=== PATIENT | female | born 2005 | race Caucasian/White ===

== ENCOUNTER 2024-12-31 01:49 | Inpatient (IN) ==
[2024-12-31 02:35] LABS: Appearance Urine Clear (Clear); Glucose Urine UA Negative (Negative)
[2024-12-31 02:37] LABS: Hematocrit (blood only) 39.2 % (37.0-47.0); Hemoglobin 13.0 g/dl (12.0-16.0); Immature Granulocytes # (auto) 0.06 K/uL (0.01-0.20); Immature Granulocytes % (auto) 0.4 %; Mean Corpuscular Hemoglobin 28.8 pg (25.0-34.0); Mean Corpuscular Volume 86.9 fL (80.0-100.0); Platelet Count 370 K/uL (130-400); RDW Standard Deviation 42.1 fL (36.4-46.3); Red Blood Count 4.51 M/uL (4.20-5.40); White Blood Count 15.17 K/ul (4.8-10.8)
[2024-12-31 02:55] LABS: Alanine Aminotransferase 11.0 U/L (7-52); Albumin Globulin Ratio 1.6 (0.9-2); Albumin Level 4.9 gm/dl (3.4-5.0); Alkaline Phosphatase 74.0 U/L (34-104); Anion Gap 12.0 (3-11); Bilirubin,Total 0.4 mg/dl (0.2-1.0); Blood Urea Nitrogen 8.0 mg/dl (6-23); Calcium 9.3 mg/dl (8.6-10.3); Carbon Dioxide 21.0 mmol/L (21-32); Chloride 107.0 mmol/L (98-107); Creatinine Clr Calc Pharmacy 116.4 ml/min; Globulin 3.1 gm/dl (2.5-4.0); Glucose 98.0 mg/dl (70-99(Fasting)); Potassium 3.8 mmol/L (3.5-5.1); Sodium 140.0 mmol/L (136-145); Total Protein 8.0 gm/dl (6.0-8.3)
[2024-12-31 03:03] LABS: Amphetamines+Metham, Urine Neg (Neg); MDMA (Ecstacy), Urine Neg (Neg); Marijuana, Urine Neg (Neg)
[2024-12-31 03:09] LABS: Thyroid Stimulating Hormone 1.764 uIu/ml (0.300-4.500)
--- NOTE | 2024-12-31 03:09 | Emergency Department Note ---
Impression & Plan Anxiety, Alcohol intoxication, Depression, Suicidal ideation ED Provider Note ED Provider Note NAME: CAITLIN DUBOIS AGE:19 SEX: Female : 2005 ARRIVES VIA: [] INFORMANT: Patient ED PROVIDER(s): Gali Styles DO CHIEF COMPLAINT: Mental health evaluation HPI: This is a 19-year-old female presents to the emergency department for mental health evaluation. Patient admits to a history of anxiety and depression and admits to recent suicidal ideation. Patient states that "she would not go through with it because of the risk of failure". Patient states she has thought about several methods in the past. No prior attempt. Patient does admit to alcohol this evening. She states she does use THC Gummies although has cut down on those since starting Lexapro approximately 6 weeks ago. She states her family doctor recently suggested increasing her Lexapro however she was reluctant to do so. She states she does typically drink on the weekends. She denies other recreational drug use. She denies any paranoia or hallucinations. She denies any homicidal ideation. Patient admits to stress with her roommates. PAST MEDICAL HISTORY:See Below PAST SURGICAL HISTORY:See Below FAMILY HISTORY:See Below SOCIAL HISTORY:See Below HOME MEDICATIONS:See Below ALLERGIES:See Below VITALS:See Below PHYSICAL EXAMINATION: GENERAL: alert, well appearing, well nourished, no distress, non-toxic EYE EXAM: normal conjunctiva, PERRL and EOM's grossly intact OROPHARYNX: no exudate, no erythema, lips, buccal mucosa, and tongue normal and mucous membranes are moist NECK: supple, no nuchal rigidity, no adenopathy, non-tender LUNGS: Clear to auscultation. Normal chest wall mechanics, no w/r/r HEART: no murmurs, S1 normal and S2 normal ABDOMEN: abdomen soft, non-tender, normo-active bowel sounds, no masses, no rebound or guarding. BACK: Back is symmetrical on inspection and there is no deformity, no midline tenderness, no CVA tenderness. SKIN: no rashes, petechiae, orbruising UPPER EXTREMITIES: upper extremities are grossly normal. FROM, nml pulses b/l. LOWER EXTREMITIES: No pitting edema. FROM, nml pulses b/l. NEURO EXAM: Normal sensorium, cranial nerves II-XII grossly intact, normal speech, no facial droop,nogross weakness of arms, no gross weakness of legs. Gross sensation intact. No ataxia. Vital Signs: reviewed and remarkable Differential Diagnosis: mood disorder, suicidal ideation, anxiety, depression, substance abuse, toxidrome, infection, hypoglycemia, electrolyte abnormalities, ICH as well as others were considered. MEDICAL DECISION MAKING: This is a 19-year-old female who presents today increased anxiety, depression, and suicidal ideation. She was afebrile and hemodynamically stable. She did admit to drinking alcohol prior to coming in. Labs and urine collected and sent per protocol. Patient monitored here while she sobered in a usual and expected fashion. She was then seen and evaluated by case management in the morning, achieving sobriety. Patient in agreement with plan for further inpatient evaluation. Patient was referred to 3 S. Patient signed out pending 3 S. evaluation and hopeful acceptance for further inpatient evaluation. Consultation(s): 0822: Patient seen and evaluated by carter Doran mgr. ER Treatment Provided: See below 0855: Patient signed out Dr. Cortez pending referral to 3S and final disposition. Diagnostics Interpreted By Me: -Laboratory studies: As stated above and show below. Triage Nursing Note Reviewed Prior/Outside Records Reviewed Past Med/Surg History Problem List (Updated 12/31/24 @ 15:22 by Manuel Chavarria MD) Cannabis abuse Alcohol withdrawal Alcohol abuse Social anxiety disorder Suicidal ideation (Acute) Depression (Acute) Alcohol intoxication (Acute) Anxiety (Acute) No significant past medical history Medical History History of cold-induced urticaria No significant past medical history Surgical History No history of previous surgery Social History Smoking Status: Never smoker Hx Alcohol Use: Yes Hx Substance Use: Yes Non-Prescribed Medications: Marijuana Preferred Language: Taiwanese Communication Ability: Effective Central Aisle Cashier Required: No Beliefs That Will Affect Care: None Feels Safe at Home: Yes Gender Identity: Female Assistive Devices: None Allergies Allergies Allergy/AdvReac Type Severity Reaction Status Date / Time Sulfa (Sulfonamide Allergy Mild Hives Verified 01/24/23 19:04 Antibiotics) Home Meds Home Medications Medication Instructions Recorded Confirmed albuterol 90 mcg/actuation aerosol 180 mcg inhalation Q4 PRN Wheezing 12/31/24 12/31/24 inhaler escitalopram oxalate 10 mg tablet 10 mg PO DAILY 12/31/24 12/31/24 (Lexapro) etonogestrel 68 mg subdermal 68 mg subdermal DIRECTED 12/31/24 12/31/24 implant (Nexplanon) fluticasone 100 mcg-salmeterol 50 1 inh inhalation BID 12/31/24 12/31/24 mcg/dose blistr powdr for inhalation (Wixela Inhub) Results & Data (ED) Vital Signs Vital Signs - 24 hr 12/31/24 01:52 12/31/24 03:00 12/31/24 05:00 Temperature 36.8 C Temperature Source Temporal Artery Scan Pulse Rate 102 H Pulse Rate [Left Finger] 106 H 110 H Pulse Rhythm Regular Pulse Rhythm [Left Finger] Regular Regular Pulse Strength Normal Pulse Strength [Left Finger] Normal Normal Respiratory Rate 18 18 22 Respiratory Effort / Characteristics Non-Labored Spontaneous Non-Labored Spontaneous Non-Labored Spontaneous Respiratory Depth Normal Normal Normal Respiratory Pattern Regular Regular Regular Blood Pressure 135/79 Blood Pressure [Left Arm] 108/63 103/68 Blood Pressure Mean 97 Blood Pressure Mean [Left Arm] 78 79 Blood Pressure Position Sitting Blood Pressure Position [Left Arm] Lying Lying Pulse Oximetry 98 97 97 Oxygen Delivery Method Room Air Room Air Room Air Sepsis Recent Fever Within 48 Hours No Sepsis New/Unexplained Change in Mental Status N/A Sepsis Action Taken by Nursing No Action Required 12/31/24 07:00 12/31/24 09:00 Temperature Temperature Source Pulse Rate Pulse Rate [Left Finger] 116 H 117 H Pulse Rhythm Pulse Rhythm [Left Finger] Pulse Strength Pulse Strength [Left Finger] Respiratory Rate 16 16 Respiratory Effort / Characteristics Respiratory Depth Respiratory Pattern Blood Pressure Blood Pressure [Left Arm] 124/69 115/76 Blood Pressure Mean Blood Pressure Mean [Left Arm] 87 89 Blood Pressure Position Blood Pressure Position [Left Arm] Semi-fowlers Semi-fowlers Pulse Oximetry 98 98 Oxygen Delivery Method Room Air Room Air Sepsis Recent Fever Within 48 Hours Sepsis New/Unexplained Change in Mental Status Sepsis Action Taken by Nursing Laboratory Data 12/31/24 02:10 12/31/24 02:10 Lab Results 12/31/24 Range/Units 02:10 WBC 15.17 H (4.8-10.8) K/ul RBC 4.51 (4.20-5.40) M/uL Hgb 13.0 (12.0-16.0) g/dl Hct 39.2 (37.0-47.0) % MCV 86.9 (80.0-100.0) fL MCH 28.8 (25.0-34.0) pg MCHC 33.2 (32.0-36.0) g/dL RDW Std Deviation 42.1 (36.4-46.3) fL RDW Coeff of Meggan 13.3 (11.5-14.5) % Plt Count 370 (130-400) K/uL MPV 10.3 (9.4-12.4) fL Immature Gran % (Auto) 0.4 % Neut % (Auto) 73.4 % Lymph % (Auto) 21.6 % Meagher % (Auto) 3.2 % Eos % (Auto) 0.5 % Baso % (Auto) 0.9 % Neut # (Auto) 11.14 H (1.40-6.50) K/uL Lymph # (Auto) 3.28 (1.20-3.40) K/uL Meagher # (Auto) 0.49 (0.11-0.59) K/uL Eos # (Auto) 0.07 (0.00-0.50) K/uL Baso # (Auto) 0.13 (0.00-0.20) K/uL Immature Gran # (Auto) 0.06 (0.01-0.20) K/uL Sodium 140 (136-145) mmol/L Potassium 3.8 (3.5-5.1) mmol/L Chloride 107 (98-107) mmol/L Carbon Dioxide 21 (21-32) mmol/L Anion Gap 12 H (3-11) BUN 8 (6-23) mg/dl Creatinine 0.66 (0.6-1.2) mg/dl Est Cr Clr Drug Dosing 116.4 ml/min eGFR 127.91 BUN/Creatinine Ratio 12.1 (10-20) Glucose 98 (70-99(Fasting)) mg/dl Calcium 9.3 (8.6-10.3) mg/dl Total Bilirubin 0.4 (0.2-1.0) mg/dl AST 21 (13-39) U/L ALT 11 (7-52) U/L Alkaline Phosphatase 74 (34-104) U/L Total Protein 8.0 (6.0-8.3) gm/dl Albumin 4.9 (3.4-5.0) gm/dl Globulin 3.1 (2.5-4.0) gm/dl Albumin/Globulin Ratio 1.6 (0.9-2) TSH 1.764 (0.300-4.500) uIu/ml Urine Color Yellow Urine Appearance Clear (Clear) Urine pH 5.5 (4.5-7.5) Ur Specific [place] 1.005 (1.000-1.030) Urine Protein Negative (Negative) Urine Glucose (UA) Negative (Negative) Urine Ketones Negative (Negative) Urine Blood Negative (Negative) Urine Nitrite Negative (Negative) Urine Bilirubin Negative (Negative) Urine Urobilinogen Negative (Negative) Ur Leukocyte Esterase Negative (Negative) Urine Test Negative (Negative) Urine Comment Salicylates < 3.0 L (3.0-30) mg/dl Urine Opiates Screen Neg (Neg) Ur Methadone, Qual Neg (Neg) Urine Fentanyl Screen Neg (Neg) Acetaminophen < 3 L (10-30) ug/ml Urine Barbiturates Neg (Neg) Ur Phencyclidine (PCP) Neg (Neg) U Amphetamin/Meth Scrn Neg (Neg) MDMA (Ecstasy) Screen Neg (Neg) U Benzodiazepines Scrn Neg (Neg) Ur Cocaine Metabolite Neg (Neg) U Marijuana (THC) Screen Neg (Neg) Ethyl Alcohol mg/dL 241.4 H (<10.0) mg/dl SARS-CoV-2, RNA, NAAT NEGATIVE (NEGATIVE) Administered Medications Hydroxyzine HCl (Hydroxyzine Hcl 25 Mg Tab) 25 mg PO Q4H PRN PRN Reason: Anxiety Stop: 01/30/25 10:30 Last Admin: 12/31/24 11:31 Dose: 25 mg Documented By: NAI Lorazepam (Lorazepam 1 Mg Tab) 1 mg PO UD PRN; Protocol PRN Reason: EtOH Withdrawal AWSS Score 6,7 Stop: 01/30/25 10:30 Last Admin: 12/31/24 11:40 Dose: 1 mg Documented By: ALEXI Propranolol HCl (Propranolol Hcl 10 Mg Tab) 5 mg PO TID BALAJI Stop: 01/30/25 13:59 Last Admin: 12/31/24 21:12 Dose: 5 mg Documented By: Admin: 12/31/24 13:44 Dose: 5 mg Documented By: ALEXI Discharge Plan Visit Data Chief Complaint: Mental Health Evaluation Stated Complaint: [facility] ED Provider: Jarrod Cortez Discharge Problem: Anxiety, Alcohol intoxication, Depression, Suicidal ideation Patient Disposition: Admitted As Inpatient Condition: Good Discharge Instructions Interventions: ED Discharge Assessment Last Done: 12/31/24 11:15
[2024-12-31 03:30] LABS: Acetaminophen < 3 ug/ml (10-30); Salicylate < 3.0 mg/dl (3.0-30)
--- NOTE | 2024-12-31 08:58 | Emergency Department Note ---
ED Visit Note I assumed care at the change of shift. The patient had presented intoxicated with alcohol, she had made some vague suicidal threats, she has had some vague suicidal thoughts. Patient was assessed once clinically sober and, was felt best served with an inpatient psychiatric stay. The stay would be voluntary. A consult was placed with our psychiatry services, [facility]. The patient has been accepted to the psychiatric services here at our hospital, [facility]. She will be a voluntary psychiatric inpatient admission. The appropriate paperwork was completed and signed. .
[2024-12-31] MEDS ORDERED: SODIUM CHLORIDE 0.65% NA SOLN 45 ML (OCEAN) PRN (10:31)
[2024-12-31] MEDS ORDERED: LORazepam 1 MG TAB PO PRN ×2 (10:31)
[2024-12-31] MEDS ORDERED: MAGNESIUM HYDROXIDE SUSP 30 ML UDC PO PRN (10:31)
[2024-12-31] MEDS ORDERED: ACETAMINOPHEN 325 MG TAB PO PRN (10:31)
[2024-12-31] MEDS ORDERED: ALUMINUM/MAGNESIUM SUSP 30 ML UDC PO PRN (10:31)
[2024-12-31] MEDS ORDERED: BISMUTH SUBSALICYLATE 262 MG CHEW PO PRN (10:31)
[2024-12-31] MEDS: LORazepam 1 MG TAB PO PRN (11:40)
[2024-12-31] MEDS: PROPRANOLOL HCL 10 MG TAB PO SCH (13:44)
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
[2024-12-31] MEDS ORDERED: ALBUTEROL HFA 8 GM INHALER INH PRN (15:26)
[2025-01-01] MEDS: ESCITALOPRAM OXALATE 10 MG TAB PO SCH (08:50)
[2025-01-01] MEDS: FLUTICASONE/VILANTEROL 100/25MCG 14 PUFFS/INHALER INH SCH (08:50)
--- NOTE | 2025-01-01 15:13 | Psychiatric Progress Note ---
Date of Service January 01, 2025 Impression / Recommendations Impression CAITLIN DUBOIS is a 19-year-old F who currently lives in with 4 roommates, has a history of anxiety, depression, and was admitted on 12/31/24 10:31 on a 201 voluntary commitment for suicidal ideation. Patient presents history of emotional neglect, ruminative anxiety, and coping with substance abuse. Likely presented with increased anxiety due to initiation of serotonin antidepressant which is an expected side effect. A:Concern for borderline personality disorder scoring 8 out of 10 on the screening instrument, generalized anxiety disorder, and social anxiety disorder. Patient presents significant fear and avoidance in multiple situations including talking to people in authority, speaking to people she does not know, and expressing disagreement or disapproval to others. Tolerating propranolol well with improvement in physical anxiety symptoms. Patient would highly benefit from an intensive outpatient program specializing in DBT to address anxious ruminations and to improve coping skills. No further alcohol withdrawal and will discontinue AWSS. Pt coping with anxiety with escalating alcohol use. Plan to optimize propranolol dose today. Overall, I spent a total of 45 minutes with this case including review of chart records, nursing report, review of lab work, direct evaluation of the patient at bedside, counseling the patient, multidisciplinary team meeting, orders, and documentation in the electronic health record. (1) Borderline personality disorder: (2) Social anxiety disorder: (3) Generalized anxiety disorder: (4) Depression: (5) Alcohol abuse: (6) Cannabis abuse: Plan 01/01/2025: Increase propranolol to 10 mg 3 times daily 12/31/2024: The patient was admitted to the [facility] ([facility] unit) on q15 min checks (behavioral with suicide precautions) for safety. The patient will participate in group, recreational, and milieu therapies and will be offered additional individual and family sessions as clinically appropriate. Continue home escitalopram 10 mg daily Start propranolol 5 mg 3 times daily Questionnaires: Ramos borderline PD screener, BUCK-7 Inventory Assets Strengths: independent, support seeking Needs: less risk taking behaviors, connection to services Suicide Risk Level Suicide Risk Level: Low (q15 min observation checks) Risk Factors Assessment Male: No : Yes Do You Have Access To A Gun?: No Health Problems: No Mental Health Diagnoses: Yes Substance Use Disorders: Yes Previous Attempt: No Family History of Suicide: No Previous Psychiatric Hospitalization: No Hopelessness: No Protective Factors Assessment Druze Beliefs: Yes : No Responsible for Young Children: No Employed: No Stable Relationships: Yes Supportive Family: No Good Rapport with Provider: Yes Absence of Any Risk Factors Above: No Interval History Identifying Information CAITLIN DUBOIS is a 19-year-old F who currently lives in with 4 roommates, has a history of anxiety, depression, and was admitted on 12/31/24 10:31 on a 201 voluntary commitment for suicidal ideation. Chief Complaint Anxiety Review of Systems Sleep Information Total Hours of Sleep: 8 Meal Information Percent Meal Consumed - Breakfast: 75 Percent Meal Consumed - Lunch: 100 Percent Meal Consumed - Dinner: 75 Subjective Subjective Patient was seen & assessed and interval progress reviewed with treatment team nursing and social work Patient slept 8 hours. Eating well and engaging in groups. On interview she reports feeling more physically calm with propranolol with less jaw clenching a nd muscle tension. She reports having trouble to relationships due to regular verbal arguments with the fear that they might leave. Coped with anxiety with eating binges and verbal outbursts. Complains of extreme moodiness and has gotten worse since freshman year. Endorses low frustration tolerance with excess anger. Often distrustful of other people citing that it is a reflection of what has happened in her home with her parents. Complains of chronic feelings of emptiness and lack of identity. And reports desperate efforts to avoid feeling abandoned. Denies SI. Physical Exam Mental Examination Appearance: Well Groomed Eye Contact: Direct Eye Contact Motor Behavior: Tremulous Speech: Normal Mood: Anxious and Sad Affect: Anxious and Sad Thought Process: Intact and Linear Thought Content: Racing Hallucinations: None Insight: Fair (to limited) Judgement: Poor Vital Signs (Past 24 Hours) Last Vital Signs Temp 36.7 C 01/01/25 06:33 Pulse 66 01/01/25 13:48 Resp 16 01/01/25 06:33 BP 117/77 01/01/25 13:48 Pulse Ox 99 12/31/24 22:46 O2 Del Method Room Air 12/31/24 22:46 Results & Data (U) Current Inpatient Medications Current Inpatient Medications: Current Inpatient Medications Acetaminophen (Acetaminophen 325 Mg Tab) 650 mg PO Q4H PRN PRN Reason: Headache or Minor Fever Stop: 01/30/25 10:30 Al Hydrox/Mg Hydrox/Simethicone (Aluminum/Magnesium Susp 30 Ml Udc) 30 ml PO Q4H PRN PRN Reason: GI Upset Stop: 01/30/25 10:30 Albuterol (Albuterol Hfa 8 Gm Inhaler) 2 puffs INH Q2H PRN PRN Reason: wheezing Stop: 01/30/25 15:29 Bismuth Subsalicylate (Bismuth Subsalicylate 262 Mg Chew) 2 tab PO Q30M PRN PRN Reason: Loose Stool/Diarrhea Stop: 01/30/25 10:30 Escitalopram Oxalate (Escitalopram Oxalate 10 Mg Tab) 10 mg PO QAM BALAJI Stop: 01/31/25 08:59 Last Admin: 01/01/25 08:50 Dose: 10 mg Fluticasone/Vilanterol (Fluticasone/Vilanterol 100/25mcg 14 Puffs/Inhaler) 1 puffs INH DAILY BALAJI Stop: 01/31/25 08:59 Last Admin: 01/01/25 08:50 Dose: 1 puffs Hydroxyzine HCl (Hydroxyzine Hcl 25 Mg Tab) 50 mg PO HSZ PRN PRN Reason: Insomnia Stop: 01/30/25 10:30 Hydroxyzine HCl (Hydroxyzine Hcl 25 Mg Tab) 25 mg PO Q4H PRN PRN Reason: Anxiety Stop: 01/30/25 10:30 Last Admin: 12/31/24 11:31 Dose: 25 mg Magnesium Hydroxide (Magnesium Hydroxide Susp 30 Ml Udc) 30 ml PO DAILY PRN PRN Reason: Constipation Stop: 01/30/25 10:30 Propranolol HCl (Propranolol Hcl 10 Mg Tab) 10 mg PO TID BALAJI Stop: 01/31/25 20:59 Sodium Chloride (Sodium Chloride 0.65% Na Soln 45 Ml ([place])) 1 - 2 sprays NA PRN PRN PRN Reason: Nasal Dryness/Congestion Stop: 01/30/25 10:30
[2025-01-01] MEDS: PROPRANOLOL HCL 10 MG TAB PO SCH (20:32)
[2025-01-02] MEDS: CETIRIZINE HCL 10 MG TABLET PO STA (15:01)
--- NOTE | 2025-01-02 16:07 | Psychiatric Progress Note ---
Date of Service January 02, 2025 Impression / Recommendations Impression CAITLIN DUBOIS is a 19-year-old F who currently lives in with 4 roommates, has a history of anxiety, depression, and was admitted on 12/31/24 10:31 on a 201 voluntary commitment for suicidal ideation. Patient presents history of emotional neglect, ruminative anxiety, and coping with substance abuse. Likely presented with increased anxiety due to initiation of serotonin antidepressant which is an expected side effect. A:Recent emotional lability and distressing anxiety. Disrupted sleep overnight. Today presents with a calmer affect and improved mood. Tolerating inc in propranolol well with improvement in physical anxiety symptoms. Concern for night sweats as s/e of escitalopram and will lower dose. Pt is future oriented. SW establish IOP intake on 01/04/25 Overall, I spent a total of 45 minutes with this case including review of chart records, nursing report, review of lab work, direct evaluation of the patient at bedside, counseling the patient, multidisciplinary team meeting, orders, and documentation in the electronic health record. (1) Borderline personality disorder: (2) Social anxiety disorder: (3) Generalized anxiety disorder: (4) Depression: (5) Alcohol abuse: (6) Cannabis abuse: Plan 01/02/2025: Decrease escitalopram to 5mg daily 01/01/2025: Increase propranolol to 10 mg 3 times daily 12/31/2024: The patient was admitted to the [facility] ([facility] mental health unit) on q15 min checks (behavioral with suicide precautions) for safety. The patient will participate in group, recreational, and milieu therapies and will be offered additional individual and family sessions as clinically appropriate. Continue home escitalopram 10 mg daily Start propranolol 5 mg 3 times daily Questionnaires: Ramos borderline PD screener, BUCK-7 Inventory Assets Strengths: independent, support seeking Needs: less risk taking behaviors, connection to services Suicide Risk Level Suicide Risk Level: Low (q15 min observation checks) Risk Factors Assessment Male: No : Yes Do You Have Access To A Gun?: No Health Problems: No Mental Health Diagnoses: Yes Substance Use Disorders: Yes Previous Attempt: No Family History of Suicide: No Previous Psychiatric Hospitalization: No Hopelessness: No Protective Factors Assessment Taoism Beliefs: Yes : No Responsible for Young Children: No Employed: No Stable Relationships: Yes Supportive Family: No Good Rapport with Provider: Yes Absence of Any Risk Factors Above: No Interval History Identifying Information ELLIDA MEITNER is a 19-year-old F who currently lives in with 4 roommates, has a history of anxiety, depression, and was admitted on 12/31/24 10:31 on a 201 voluntary commitment for suicidal ideation. Chief Complaint Anxiety, mood lability Review of Systems Sleep Information Total Hours of Sleep: 8.25 Meal Information Percent Meal Consumed - Breakfast: 10 Percent Meal Consumed - Lunch: 100 Percent Meal Consumed - Dinner: 90 Subjective Subjective Patient was seen & assessed and interval progress reviewed with treatment team nursing and social work Overnight had disrupted sleep. Has been catastrophizing and demonstrating increase in anxiety. On interview she reports improvement in jaw clenching and physical anxiety symptoms. Reports having a night terror last night and this is not regular for her. Reports intermittent marijuana use however takes many Brech days did not develop a tolerance. Denies SI and feels hopeful for the future. C/o ongoing night sweats with lexapro. Physical Exam Mental Examination Appearance: Well Groomed Eye Contact: Maintains Eye Contact Motor Behavior: Unremarkable Speech: Normal Mood: Euthymic and Calm Affect: Constricted Thought Process: Intact and Linear Thought Content: Intact Hallucinations: None Insight: Fair (to limited) Judgement: Poor (to limited) Vital Signs (Past 24 Hours) Last Vital Signs Temp 36.7 C 01/02/25 06:25 Pulse 71 01/02/25 14:20 Resp 18 01/02/25 14:20 BP 115/82 01/02/25 14:20 Pulse Ox 98 01/02/25 14:20 O2 Del Method Room Air 01/02/25 14:20 Results & Data ([facility]) Current Inpatient Medications Current Inpatient Medications: Current Inpatient Medications Acetaminophen (Acetaminophen 325 Mg Tab) 650 mg PO Q4H PRN PRN Reason: Headache or Minor Fever Stop: 01/30/25 10:30 Al Hydrox/Mg Hydrox/Simethicone (Aluminum/Magnesium Susp 30 Ml Udc) 30 ml PO Q4H PRN PRN Reason: GI Upset Stop: 01/30/25 10:30 Albuterol (Albuterol Hfa 8 Gm Inhaler) 2 puffs INH Q2H PRN PRN Reason: wheezing Stop: 01/30/25 15:29 Bismuth Subsalicylate (Bismuth Subsalicylate 262 Mg Chew) 2 tab PO Q30M PRN PRN Reason: Loose Stool/Diarrhea Stop: 01/30/25 10:30 Escitalopram Oxalate (Escitalopram Oxalate 10 Mg Tab) 5 mg PO QAM BALAJI Stop: 02/02/25 08:59 Fluticasone/Vilanterol (Fluticasone/Vilanterol 100/25mcg 14 Puffs/Inhaler) 1 puffs INH DAILY BALAJI Stop: 01/31/25 08:59 Last Admin: 01/02/25 09:05 Dose: 1 puffs Hydroxyzine HCl (Hydroxyzine Hcl 25 Mg Tab) 50 mg PO HSZ PRN PRN Reason: Insomnia Stop: 01/30/25 10:30 Last Admin: 01/01/25 20:32 Dose: 50 mg Hydroxyzine HCl (Hydroxyzine Hcl 25 Mg Tab) 25 mg PO Q4H PRN PRN Reason: Anxiety Stop: 01/30/25 10:30 Last Admin: 12/31/24 11:31 Dose: 25 mg Magnesium Hydroxide (Magnesium Hydroxide Susp 30 Ml Udc) 30 ml PO DAILY PRN PRN Reason: Constipation Stop: 01/30/25 10:30 Propranolol HCl (Propranolol Hcl 10 Mg Tab) 10 mg PO TID BALAJI Stop: 01/31/25 20:59 Last Admin: 01/02/25 14:30 Dose: 10 mg Sodium Chloride (Sodium Chloride 0.65% Na Soln 45 Ml ([place])) 1 - 2 sprays NA PRN PRN PRN Reason: Nasal Dryness/Congestion Stop: 01/30/25 10:30 Mental Health & Subst Abuse Tx Psychiatrist Name of Psychiatrist: [facility] Psychiatrist's Date Of Appointment With Psychiatric Provider: 01/04/25 Time of Appointment with Psychiatrist: 11am Psychiatric Appointment Comment: Link will be sent to your email address: [email or web address] Therapist Name of Therapist: [facility] Therapist's Date of Therapist Appointment: 01/04/25 Time of Therapist Appointment: 11am Therapy Appointment Comment: Link will be sent to your email address: [email or web address] Discharge Appointments Primary Care Physician Name Of Family Doctor/PCP: [facility] Other #1: Name of Aftercare Appointment: [facility] ([facility]) post hospitalization zoom Phone Number of Aftercare Appointment: [phone] Date of Aftercare Appointment: 01/05/25 Time of Aftercare Appointment: 11am Aftercare Appointment Comment: link will be sent to your [facility] email Contact Information Discharge Discharge Address: Albertina Portillo [address] [place] [address]
[2025-01-03] MEDS: ESCITALOPRAM OXALATE 10 MG TAB PO SCH (08:28)
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
== END 2025-01-03 11:07 | disposition home or self-care (01) | DRG 883 ==
LOC: ED 01:49 → 3S 10:31